=== PATIENT | female | born 1990 | race American Indian/Alaskan Native ===

== ENCOUNTER 2020-04-22 10:12 | Outpatient (CLI) | payer OTHER ==
[2020-04-22 11:03] VITALS: BP 108/52
[2020-04-22] MEDS ORDERED: LACTATED RINGERS 500 ML IV ONE (12:08)
== END 2020-04-22 12:25 | disposition home or self-care (01) ==
LOC: APU 10:12 → TRG 10:12
PROVIDERS: ATTEND Obstetrics & Gynecology
DX: O26.893 Other specified pregnancy related conditions, third trimester (principal); R10.30 Lower abdominal pain, unspecified; M54.5 Low back pain; R10.2 Pelvic and perineal pain
CPT/HCPCS: 59025

== ENCOUNTER 2020-04-28 11:45 | Outpatient (CLI) | payer OTHER ==
[2020-04-28] MEDS ORDERED: ACETAMINOPHEN 500 MG TAB PO STA (11:49)
[2020-04-28 12:29] LABS: Bacteria,Urine 1+ /HPF (Negative); Bilirubin,Urine NEG (Negative); Blood,Urine NEG (Negative); Color,Urine Yellow (Yellow); Mucus,Urine FEW /HPF; Protein,Urine <15 mg/dL mg/dL (Negative)
[2020-04-28 12:37] VITALS: BP 102/58
== END 2020-04-28 12:53 | disposition home or self-care (01) ==
LOC: APU 11:45 → TRG 11:45
PROVIDERS: ATTEND Obstetrics & Gynecology
DX: O29.43 Spinal and epidural anesthesia induced headache during pregnancy, third trimester (principal); Z3A.32 32 weeks gestation of pregnancy
CPT/HCPCS: 59025; 81001